=== PATIENT | male | born 1985 | race African-American/Black ===

== ENCOUNTER 2022-02-02 14:06 | Emergency (ER) | payer SELFPAY ==
[2022-02-02 14:31] LABS: Absolute Lymphocytes (CBC) 2.9 K/uL (0.7-4.9); Hematocrit 48.2 % (39.6-49.0); Lymphocytes % 29.9 % (15.3-44.8); MCV 95.9 fL (80-100); MPV 8.3 fL (7.6-11.3); RBC Red Blood Cell Count 5.02 M/uL (4.33-5.43)
[2022-02-02 14:51] LABS: Potassium 3.6 mmol/L (3.5-5.1); Troponin High Sensitivity 13.2 pg/mL (<58.9)
[2022-02-02] MEDS ORDERED: NA CHLORIDE 0.9% 1,000 ML ONE (15:10)
--- NOTE | 2022-02-02 15:25 | RAD REPORT ---
EXAM DESCRIPTION: RAD - Chest Pa And Lat (2 Views) - 02/02/2022 3:18 pm CLINICAL HISTORY: CHEST PAIN COMPARISON: None TECHNIQUE: Frontal and lateral views of the chest were obtained. FINDINGS: The lungs are clear. Heart size is normal and central vasculature is within normal limit s. No pleural effusion or pneumothorax seen. No acute bony finding noted. No aortic abnormality. IMPRESSION: No acute cardiopulmonary process.
--- NOTE | 2022-02-02 15:26 | RAD REPORT ---
EXAM DESCRIPTION: RAD - Sternum - 02/02/2022 3:18 pm CLINICAL HISTORY: PAIN, trauma to the sternum COMPARISON: Chest Pa And Lat (2 Views) dated 02/02/2022 FINDINGS: Lateral and oblique views of the sternum were obtained. Oblique view has motion degradatio n. Sternum and manubrium segments align normally. No fracture or acute finding identifiable. IMPRESSION: No sternum abnormality identified.
--- NOTE | 2022-02-02 15:40 | RAD REPORT ---
EXAM DESCRIPTION: CT - Thorax Wo Con - 02/02/2022 3:23 pm CLINICAL HISTORY: chest pain COMPARISON: Sternum dated 02/02/2022; Chest Pa And Lat (2 Views) dated 02/02/2022 TECHNIQUE: Axial 5 mm thick images of the chest were obtained without IV contrast. All CT scans are performed using dose optimization technique as appropriate and may include automated exposure control or mA/KV adjustment according to patient size. FINDINGS: No pulmonary contusion or acute lung parenchymal process. No pleural thickening or pleural effusion. No pneumothorax. Trace pleural fluid or pleural thickening seen along the anterior margin of the heart deep to the xip hoid process. Baseline for the patient is unknown. There is no other finding to suggest mediastinal h emorrhage. Xiphoid process is not displaced. No fracture of the manubrium or sternum identified. No g ross aortic or pulmonary artery finding suspected. Assessment is limited in the absence of IV contra st. No chest wall mass or abnormal axillary lymphadenopathy. No rib fractures seen. IMPRESSION: Negative non-contrast CT chest examination for sternum fracture or other acute finding. Trace amount fluid seen along the anterior pericardium may be baseline. All other bone and soft tissu e structures adjacent to this fluid are unremarkable.
--- NOTE | 2022-02-02 16:00 | ER ---
Nurse's Notes [facility] Name: Sukumar Li Age: 36 yrs Sex: Male : 1985 Arrival Date: 02/02/2022 Time: 14:10 Bed 2 Private MD: Diagnosis: Chest pain, unspecified-chest wall pain Presentation: 02/02 14:13 Chief complaint: Patient states: I was playing basketball on January 13 with friends - ld1 went up for a layup and came down on my friends shoulder. Pt C/O intermittent midsternal chest pain. Coronavirus screen: At this time, the client does not indicate any symptoms associated with coronavirus-19. Ebola Screen: No symptoms or risks identified at this time. Initial Sepsis Screen: Does the patient meet any 2 criteria? No. Patient's initial sepsis screen is negative. Does the patient have a suspected source of infection? No. Patient's initial sepsis screen is negative. Risk Assessment: Do you want to hurt yourself or someone else? Patient reports no desire to harm self or others. Onset of symptoms was February 02, 2022. 14:13 Method Of Arrival: Ambulatory ld1 14:13 Acuity: ARTHUR 3 ld1 Triage Assessment: 14:15 General: Appears in no apparent distress. comfortable, Behavior is calm, cooperative, ld1 appropriate for age. Pain: Complains of pain in chest Pain does not radiate. Pain currently is 5 out of 10 on a pain scale. at worst was 10 out of 10 on a pain scale. Quality of pain is described as aching, throbbing, Pain began suddenly, Is intermittent. EENT: No signs and/or symptoms were reported regarding the EENT system. Neuro: Level of Consciousness is awake, alert, obeys commands, Oriented to person, place, time, situation. Cardiovascular: Capillary refill < 3 seconds Patient's skin is warm and dry. Respiratory: Airway is patent Respiratory effort is even, unlabored. GI: Abdomen is flat, non-distended. : No signs and/or symptoms were reported regarding the genitourinary system. Derm: No signs and/or symptoms reported regarding the dermatologic system. Historical: - Allergies: 14:15 No Known Allergies; ld1 - Home Meds: 14:15 None [Active]; ld1 - PMHx: 14:15 None; ld1 - PSHx: 14:15 None; ld1 - Immunization history:: Adult Immunizations up to date, Client reports receiving the 2nd dose of the Covid vaccine. - Social history:: Smoking status: Patient denies any tobacco usage or history of. Patient uses alcohol, occasionally. Screenin:23 Abuse screen: Denies threats or abuse. Denies injuries from another. Nutritional mb8 screening: No deficits noted. Tuberculosis screening: No symptoms or risk factors identified. Fall Risk No fall in past 12 months (0 pts). No secondary diagnosis (0 pts). IV access (20 points). Ambulatory Aid- None/Bed Rest/Nurse Assist (0 pts). Gait- Normal/Bed Rest/Wheelchair (0 pts) Mental Status- Oriented to own ability (0 pts). Total Vieira Fall Scale indicates No Risk (0-24 pts). Assessment: 14:21 Pain: Complains of pain in mid-sternal area Pain does not radiate. Pain currently is 5 mb8 out of 10 on a pain scale. Quality of pain is described as squeezing, Pain began 2 weeks ago. Cardiovascular: Reports chest pain, Denies diaphoresis, fatigue, lightheadedness, palpitations, shortness of breath, syncope, vomiting, Rhythm is sinus rhythm Chest pain is described as mild. 14:27 General: Appears comfortable, Behavior is calm, cooperative. Pain: Complains of pain in aa5 mid-sternal area Pain does not radiate. Pain currently is 5 out of 10 on a pain scale. Quality of pain is described as squeezing, Pain began "about 2 weeks ago" Is intermittent, Aggravated by movement. Neuro: Level of Consciousness is awake, alert, obeys commands, Oriented to person, place, time, situation. Cardiovascular: Reports chest pain, Heart tones S1 S2 present Rhythm is sinus rhythm. Respiratory: Airway is patent Respiratory effort is even, unlabored, Respiratory pattern is regular, symmetrical, Breath sounds are clear bilaterally. GI: Abdomen is flat, non-distended, Bowel sounds present X 4 quads. Abd is soft and non tender X 4 quads. : No signs and/or symptoms were reported regarding the genitourinary system. EENT: No signs and/or symptoms were reported regarding the EENT system. Derm: Skin is dry, Skin is normal, Skin temperature is warm. Musculoskeletal: Range of motion: intact in all extremities. 15:12 Reassessment: To bedside to administer NS bolus, pt currently at radiology. . aa5 15:33 Reassessment: Pt sitting up in bed using his cell phone, pt states no complaints at aa5 this time. . Neuro: Level of Consciousness is awake, alert, obeys commands, Oriented to person, place, time, situation. Respiratory: Airway is patent Respiratory effort is even, unlabored, Respiratory pattern is regular, symmetrical. Derm: Skin is dry, Skin is normal, Skin temperature is warm. 16:23 Reassessment: Awaiting NS bolus to complete before d/c home, pt notified of wait time. aa5 Pt sitting up in bed. . Vital Signs: 14:13 BP 141 / 102; Pulse 76; Resp 18; Temp 98.8(TE); Pulse Ox 99% on R/A; Weight 79.38 kg; aa5 Height 5 ft. 11 in. (180.34 cm); Pain 5/10; 14:21 BP 149 / 93; Pulse 71; Pulse Ox 99% on R/A; aa5 15:34 BP 112 / 65; Pulse 58; Resp 16 S; Pulse Ox 100% on R/A; aa5 16:25 BP 106 / 68; Pulse 52; Resp 18 S; Pulse Ox 100% on R/A; aa5 14:13 Body Mass Index 24.41 (79.38 kg, 180.34 cm) aa5 ED Course: 14:10 Patient arrived in ED. am2 14:12 Sherita Cho, ROSE is Primary Nurse. aa5 14:14 [facility]C [facility] kb 14:14 Iglesia Lockhart MD is Attending Physician. kb 14:14 Triage completed. ld1 14:15 Arm band placed on right wrist. EKG completed in triage. Results shown to MD. ld1 14:23 Patient has correct armband on for positive identification. Placed in gown. Bed in low mb8 position. Call light in reach. Side rails up X2. Client placed on continuous cardiac and pulse oximetry monitoring. NIBP monitoring applied. youth nutritional monitor on. 14:23 No provider procedures requiring assistance completed. Inserted saline lock: 20 gauge mb8 in right antecubital area, using aseptic technique. Blood collected. Patient maintains SpO2 saturation greater than 95% on room air. 15:20 Sternum In Process Unspecified. EDMS 15:20 Chest Pa And Lat (2 Views) XRAY In Process Unspecified. EDMS 15:25 CT Chest Wo Con In Process Unspecified. EDMS 16:40 IV discontinued, intact, bleeding controlled, No redness/swelling at site. Pressure aa5 dressing applied. Administered Medications: 15:32 Drug: NS 0.9% 1000 ml Route: IV; Rate: 1000 ml; Site: right antecubital; aa5 16:38 Follow up: IV Status: Completed infusion; IV Intake: 1000ml aa5 Medication: 14:22 VIS not applicable for this client. mb8 Intake: 16:38 IV: 1000ml; Total: 1000ml. aa5 Outcome: 15:59 Discharge ordered by . kb 16:40 Discharged to home ambulatory. aa5 16:40 Condition: good 16:40 Discharge instructions given to patient, Instructed on discharge instructions, follow up and referral plans. Demonstrated understanding of instructions, follow-up care. 16:43 Patient left the ED. aa5 Signatures: Dispatcher [employer] EDMS Stephanie Contreras, TOBACCO SAMPLE PULLER-C TOBACCO SAMPLE PULLER-CkSherita Hahn, RN RN aa5 Cesilia Dey am2 Karla Smith, RN RN ld1 Blair Nance, RN RN mb8 Corrections: (The following items were deleted from the chart) 14:15 14:15 PSHx: Unable to Obtain; ld1 ld1 14:16 14:13 79.38 kg; Height 5 ft. 11 in.; BMI: 24.4; Pain 5/10; ld1 ld1 14:21 14:13 BP 141 / 102; Pulse 76bpm; Resp 18bpm; Pulse Ox 99% RA; 79.38 kg; Height 5 ft. 11 aa5 in.; BMI: 24.4; Pain 5/10; ld1
--- NOTE | 2022-02-02 16:00 | EDPHYS ---
Physician Documentation [facility] Name: Sukumar Li Age: 36 yrs Sex: Male : 1985 Arrival Date: 02/02/2022 Time: 14:10 Bed 2 Private MD: ED Physician Iglesia Lockhart HPI: 02/02 15:23 This 36 yrs old Male presents to ER via Ambulatory with complaints of Chest Pain. kb 15:23 The patient or guardian reports chest pain that is located primarily in the mid-sternal kb area. Onset: The symptoms/episode began/occurred 2.5 week(s) ago. The pain does not radiate. Associated signs and symptoms: The patient has no apparent associated signs or symptoms. The chest pain is described as aching. Duration: The patient or guardian reports a single episode. Modifying factors: The symptoms are alleviated by nothing. the symptoms are aggravated by deep breath, movement, palpation of area. Severity of pain: At its worst the pain was moderate in the emergency department the pain is unchanged. The patient has not experienced similar symptoms in the past. The patient has not recently seen a physician. Pt states he fell to his chest while playing basketball 2.5 weeks ago and is still having pain to sternum. . Historical: - Allergies: 14:15 No Known Allergies; ld1 - Home Meds: 14:15 None [Active]; ld1 - PMHx: 14:15 None; ld1 - PSHx: 14:15 None; ld1 - Immunization history:: Adult Immunizations up to date, Client reports receiving the 2nd dose of the Covid vaccine. - Social history:: Smoking status: Patient denies any tobacco usage or history of. Patient uses alcohol, occasionally. ROS: 15:23 Constitutional: Negative for fever, chills, and weight loss. kb 15:23 Cardiovascular: Positive for chest pain, with movement, of the mid-sternal area. 15:23 All other systems are negative. Exam: 15:11 Constitutional: This is a well developed, well nourished patient who is awake, alert, kb and in no acute distress. Head/Face: Normocephalic, atraumatic. ENT: Moist Mucous membranes Cardiovascular: Regular rate and rhythm with a normal S1 and S2. No gallops, murmurs, or rubs. No pulse deficits. Respiratory: Respirations even and unlabored. No increased work of breathing. Talking in full sentences Abdomen/GI: Soft, non-tender. No distention Skin: Warm, dry with normal turgor. Normal color. MS/ Extremity: Pulses equal, no cyanosis. Neurovascular intact. Full, normal range of motion. Neuro: Awake and alert, GCS 15, oriented to person, place, time, and situation. Moves all extremities. Normal gait. 15:11 Chest/axilla: Inspection: normal, Palpation: tenderness, that is moderate, of the mid-sternal area, that totally reproduces the patient's complaints. 15:11 ECG was reviewed by the Attending Physician. Vital Signs: 14:13 BP 141 / 102; Pulse 76; Resp 18; Temp 98.8(TE); Pulse Ox 99% on R/A; Weight 79.38 kg; aa5 Height 5 ft. 11 in. (180.34 cm); Pain 5/10; 14:21 BP 149 / 93; Pulse 71; Pulse Ox 99% on R/A; aa5 15:34 BP 112 / 65; Pulse 58; Resp 16 S; Pulse Ox 100% on R/A; aa5 16:25 BP 106 / 68; Pulse 52; Resp 18 S; Pulse Ox 100% on R/A; aa5 14:13 Body Mass Index 24.41 (79.38 kg, 180.34 cm) aa5 MDM: 14:14 Patient medically screened. kb 15:11 Data reviewed: vital signs, nurses notes. Data interpreted: Pulse oximetry: on room air kb is 99 %. Interpretation: normal. 15:56 Counseling: I had a detailed discussion with the patient and/or guardian regarding: the kb historical points, exam findings, and any diagnostic results supporting the discharge/admit diagnosis, lab results, radiology results, the need for outpatient follow up, a family practitioner, to return to the emergency department if symptoms worsen or persist or if there are any questions or concerns that arise at home. 02/02 14:19 Order name: CBC with Diff; Complete Time: 14:37 kb 02/02 14:19 Order name: Basic Metabolic Panel; Complete Time: 14:51 kb 02/02 14:19 Order name: Troponin High Sensitivity; Complete Time: 14:51 kb 02/02 14:19 Order name: Sternum; Complete Time: 15:38 kb 02/02 14:19 Order name: Chest Pa And Lat (2 Views) XRAY; Complete Time: 15:38 kb 02/02 15:14 Order name: CT Chest Wo Con; Complete Time: 15:41 kb 02/02 14:19 Order name: EKG; Complete Time: 14:19 kb 02/02 14:19 Order name: EKG - Nurse/Tech; Complete Time: 14:21 kb EC:11 Rate is 65 beats/min. Rhythm is regular. QRS [place] is Normal. FL interval is normal at kb 134 msec. QRS interval is normal at 88 msec. QT interval is normal at 376 msec. Administered Medications: 15:32 Drug: NS 0.9% 1000 ml Route: IV; Rate: 1000 ml; Site: right antecubital; aa5 16:38 Follow up: IV Status: Completed infusion; IV Intake: 1000ml aa5 Disposition: 18:09 Co-signature as Attending Physician, Iglesia Lockhart MD. rn Disposition Summary: 02/02/22 15:59 Discharge Ordered Location: Home kb Condition: Stable kb Diagnosis - Chest pain, unspecified - chest wall pain(02/02/22 15:59) kb Followup: kb - With: Emergency Department - When: As needed - Reason: Worsening of condition Followup: kb - With: Private Physician - When: 2 - 3 days - Reason: Recheck today's complaints, Continuance of care, Re-evaluation by your physician Discharge Instructions: - Discharge Summary Sheet kb - Chest Wall Pain, [id number] kb Forms: - Medication Reconciliation Form kb - Thank You Letter kb - Antibiotic Education kb - Prescription Opioid Use kb - Work release form jl7 Signatures: Dispatcher [employer] Stephanie Valentin, FINANCIAL REPORTING ACCOUNTANT-C FINANCIAL REPORTING ACCOUNTANT-Ckb Iglesia Lockhart MD MD rn Calderon, Audri RN RN aa5 Karla Smith RN RN ld1 Corrections: (The following items were deleted from the chart) 14:15 14:15 PSHx: Unable to Obtain; ld1 ld1 15:59 15:59 Chest pain, unspecified kb kb
[2022-02-02 18:00] VITALS: TEMP 98.8
[2022-02-02 18:02] VITALS: O2SAT 100
[2022-02-02 18:03] VITALS: BP 106/68
--- NOTE | 2022-02-03 13:57 | EKG ---
Test Date: 2022-02-02 Test Time: 14:16:12 Border Machine Operator: MEASUREMENT RESULTS: Intervals: Rate: 65 MI: 134 QRSD: 88 QT: 362 QTc: 376 [place]: P: 47 MI: 134 QRS: 81 T: 53 INTERPRETIVE STATEMENTS: Normal sinus rhythm Normal ECG No previous ECG available for comparison Electronically Signed On 02-03-22 13:55:48 CRYOGENICS REPAIRER by Zak Abel
== END 2022-02-02 16:43 | disposition home or self-care (01) ==
LOC: ER 14:06
DX: R07.89 Other chest pain (principal)
CPT/HCPCS: 36415; 71046; 71120; 71250; 80048; 84484; 85025; 93005; 96360; 99285; J7030